=== PATIENT | female | born 1940 | race Hispanic/Latino ===

== ENCOUNTER 2018-04-25 09:28 | Emergency (ER) | payer OTHER, MEDICARE, BC ==
[2018-04-25 09:39] VITALS: O2SAT 100; BMI 30.9
[2018-04-25] MEDS ORDERED: TDAP Vaccine 0.5 mL Syr IM ONE (09:46)
--- NOTE | 2018-04-25 09:49 | ED PDOC ---
Arrival/HPI - General Chief Complaint: Abnormal Skin Integrity Time Seen by Provider: 04/25/18 09:31 Historian: Patient - History of Present Illness Narrative History of Present Illness (Text): 04/25/18 09:46 77-year-old female presents today with a left forearm laceration in the left lower leg laceration status post fall. [place] causing the handle of the luggage to hit directly into the left knee that is causing her to fall landing on the left side sustaining laceration to the left forearm. Patient denies hitting her head. She denies headaches dizziness or weakness. She denies neck pain. She denies back pain. Patient is unsure of her last tetanus shot. Incident occurred prior to arrival. No other complaints Past Medical History - Provider Review Nursing Documentation Reviewed: Yes - Travel History Have you recently traveled outside [place] w/in the past 3 mons?: No If Yes, travel location?: [place] - Tetanus Immunization Tetanus Immunization: Unknown - Cardiac Hx Cardiac Disorders: Yes Hx Hypertension: Yes - Pulmonary Hx Respiratory Disorders: No - Neurological Hx Neurological Disorder: No - HEENT Hx HEENT Disorder: Yes Other/Comment: R retinal occulsion. - Renal Hx Renal Disorder: No - Endocrine/Metabolic Hx Endocrine Disorders: No - Hematological/Oncological Hx Blood Disorders: No - Integumentary Hx Dermatological Disorder: No - Musculoskeletal/Rheumatological Hx Musculoskeletal Disorders: No - Gastrointestinal Hx Gastrointestinal Disorders: No - Genitourinary/Gynecological Hx Genitourinary Disorders: No - Psychiatric Hx Psychophysiologic Disorder: No Hx Substance Use: No - Surgical History Hx Appendectomy: Yes Hx Cholecystectomy: Yes Hx Eye Surgery: Yes (right eye) Hx Musculoskeletal Surgery: Yes (R knee replacement) - Anesthesia Hx Anesthesia: Yes Hx Anesthesia Reactions: No Hx Malignant Hyperthermia: No Family/Social History - Physician Review Nursing Documentation Reviewed: Yes Family/Social History: Unknown Family HX Smoking Status: Never Smoked Hx Alcohol Use: Yes Frequency of alcohol use: Socially Hx Substance Use: No Allergies/Home Meds Allergies/Adverse Reactions: Allergies No Known Allergies Allergy (Verified 04/25/18 09:29) Review of Systems - Review of Systems Constitutional: absent: Fatigue, Fevers Respiratory: absent: SOB, Cough Cardiovascular: absent: Chest Pain Gastrointestinal: absent: Abdominal Pain, Constipation, Diarrhea, Nausea, Vomiting Musculoskeletal: absent: Back Pain, Neck Pain Skin: Laceration Neurological: absent: Headache, Dizziness, Speech Changes, Disequilibrium Physical Exam Vital Signs Reviewed: Yes Vital Signs Temp Pulse Resp BP Pulse Ox 04/25/18 09:28 97.4 F L 67 18 153/77 H 100 Temperature: Afebrile Blood Pressure: Hypertensive Pulse: Regular Respiratory Rate: Normal Appearance: Positive for: Well-Appearing, Non-Toxic, Comfortable Pain Distress: None Mental Status: Positive for: Alert and Oriented X 3 - Systems Exam Head: Present: Atraumatic Conjunctiva: Present: Normal Mouth: Present: Moist Mucous Membranes Neck: Present: Normal Range of Motion Respiratory/Chest: Present: Clear to Auscultation, Good Air Exchange. No: Respiratory Distress, Accessory Muscle Use Cardiovascular: Present: Regular Rate and Rhythm, Normal S1, S2. No: Murmurs Abdomen: No: Tenderness, Rebound, Guarding Upper Extremity: Present: Normal ROM, NORMAL PULSES, Neurovascularly Intact, Other (There is a 2 cm superficial linear laceration to the left proximal forearm. Positive surrounding ecchymosis. No erythema. Sensation and distal pulses intact. Full range of motion of the extremity. No bony tenderness.). No: Tenderness, Swelling, Erythema Lower Extremity: Present: Normal ROM, Other (There is a 5 cm x 4 cm V-shaped superfical skin tear laceration over the anterior aspect of the left lower leg. No active bleeding. Sensation and distal pulses intact. Cap refill less than 2. No calf tenderness.). No: Tenderness, Swelling Neurological: Present: GCS=15, Speech Normal Skin: Present: Warm, Dry Psychiatric: Present: Alert, Oriented x 3 Medical Decision Making ED Course and Treatment: 04/25/18 10:07 Patient is nontoxic well appearing in no distress. Vital signs are stable. Wound irrigated well with high pressure irrigation Tetanus updated keflex PO Laceration repair: left arm and left leg; repaired with steri strips and dermabond. dressing applied Patient was advised to keep the wound clean and dry. Advised to return immediately if signs of infection develop or return if any other concerning symptoms develop. pt advised to take abx as prescribed and follow up with the PMD. Patient verbalizes understanding of discharge instructions and need for immediate followup. all aspects of this case were discussed the attending of record. Impression: Laceration arm, laceration leg tylenol ever 4 hours as needed for pain Keflex; 4 times daily x 7 days. Keep the wound clean and dry Return immediately if signs of infection develop: High fevers, increasing pain, redness, swelling, purulent discharge Followup with primary care physician within the next 2 days Return if any other concerning symptoms develop Procedure: Wound Repair - Procedure Procedure: Wound Repair: laceration leg arm, laceration leg leg - Consent Obtained Consent obtained: Verbal - Performed by Performed by: Mid-level Provider - Indications Indication(s):: Laceration (skin tear) - Location Location:: Left, Forearm, Leg Shape:: Other (laceration to arm; 2cm linear laceration to left lex4cmV shaped) Depth:: Epidermis - Anesthetic Technique Local/Regional Anesthetic:: Other (NON) - Debris Debris:: None - Irrigated Irrigated with ml of normal saline: copious amounts of NS using high pressure irrigation - Complexity Complexity:: Simple (one layer) - Wound repair method [place]:: Tissue glue, Steri-strips - Complications Complications: none - Patient tolerated procedure Patient Tolerated Procedure:: Well Disposition/Present on Arrival - Present on Arrival Any Indicators Present on Arrival: No History of DVT/PE: No History of Uncontrolled Diabetes: No Urinary Catheter: No History of Decub. Ulcer: No History Surgical Site Infection Following: None - Disposition Have Diagnosis and Disposition been Completed?: Yes Diagnosis: Laceration of arm, Laceration of leg Disposition: HOME/ ROUTINE Disposition Time: 10:09 Patient Plan: Discharge Patient Problems: Current Active Problems Problem Status Onset Laceration of arm Acute Laceration of leg Acute Condition: GOOD Discharge Instructions (ExitCare): Laceration Repair With Glue (DC) Additional Instructions: tylenol ever 4 hours as needed for pain Keflex; 4 times daily x 7 days. Keep the wound clean and dry Return immediately if signs of infection develop: High fevers, increasing pain, redness, swelling, purulent discharge Followup with primary care physician within the next 2 days Return if any other concerning symptoms develop Prescriptions: Cephalexin [Keflex] 500 mg PO QID #28 capsule Referrals: Alessandra Sauceda MD [Medical Doctor] - Follow up with primary Sherman Bonilla MD [Staff Provider] - Follow up with primary [facility] [Outside] - Follow up with primary [facility] [place]] - Follow up with primary Forms: [employer] (Sami)
[2018-04-25 11:54] VITALS: BP 152/69; PULSE 63; RESP 17; TEMP 97.6
== END 2018-04-25 11:50 | disposition home or self-care (01) ==
LOC: ED 09:28
DX: S51.812A Laceration without foreign body of left forearm, initial encounter (principal); S81.812A Laceration without foreign body, left lower leg, initial encounter; W01.0XXA Fall on same level from slipping, tripping and stumbling without subsequent striking against object, initial encounter; Y92.89 Other specified places as the place of occurrence of the external cause; Z23 Encounter for immunization; I10 Essential (primary) hypertension